=== PATIENT | female | born 1970 | race Hispanic/Latino ===

== ENCOUNTER 2019-12-20 13:51 | Emergency (ER) | payer OTHER ==
[~2019-12-20] VITALS: Ht 157.5 cm; Wt 67.1 kg
--- OUTSIDE RECORDS SUMMARY | 2019-12-20 13:53 | XMS REPORT ---
Author [facility] Address Unknown Phone Unavailable Care Team Providers Care Mortgage Assistant Name Role Phone Unavailable Unavailable Payers Payer Name Policy Type Policy Number Effective Date Expiration Date Problems This patient has no known problems. Allergies, Adverse Reactions, Alerts Allergy Name Allergy Type Status Severity Reaction(s) Onset Date Inactive Date Treating Clinician Comments No Known Allergies DA Active U 2019-01-11 00:00:00 No Known Allergies DA Active U 2016-01-09 00:00:00 Medications This patient has no known medications. Results Test Description Test Time Test Comments Text Results Atomic Results Result Comments - US PELVIS COMPLETE 2019-07-06 16:01:00 [facility] 1970 Age/S: 49 / F [address] [facility] Unit #: [id number] Loc: [place] [address] Phys: Jordy Yadav MD Acct: [id number] Dis Date: Status: REG CLI PHONE #: [phone] Exam Date: 07/06/2019 153 FAX #: [phone] Reason: MENOPAUSAL BLEEDING EXAMS: CPT CODE: [id number] US PELVIS COMPLETE 79493 HISTORY: Menopausal bleeding. COMPARISON: None available. Transabdominal and transvaginal (for better endometrial and ovarian evaluation) pelvic ultrasound with color and Doppler flow and grayscale imaging. Anteverted uterus measured 7.6 x 3.6 x 4 cm. Heterogeneous echogenicity and coarse texture. No discrete fibroids. Endometrial thickness of 8.8 mm is abnormal for postmenopausal woman. The normal should measure less than 5 mm. Visu alized portions of the cervix are normal. Nabothian cysts. Color and Doppler flow in either ovary with normal spectral waveform. Right ovary measured 2.1 x 1 x 2.1 cm with simple cyst measuring 1.1 cm. Left ovary measured 1.5 x 1.2 x 1.2 cm. No free fluid. IMPRESSION: Endometrial thickness of 8.8 mm is abnormal for postmenopausal woman and should measure less than 5 mm. No fibroids. Normal ovaries with color Doppler flow. at 1601 Reported and signed by: Hero Spencer M.D. CC: Mike Agosto; Jordy Yadav Technologist: SHASHANK BARNETT RT(R),[facility] [employer] Date/Time: 07/06/2019 (160) [email or web address].[email or web address] Orig Print D/T: S: 07/06/2019 (5230) Probe: PAGE 1 Signed Report - US TRANSVAGINAL NON OB 2019-07-06 16:01:00 Name: JEFF FARNSWORTH [facility] : 1970 Age/S: 49 / F [address] [facility] Unit #: [id number] Loc: [place] [address] Phys: Jordy Yadav MD Acct: [id number] Dis Date: Status: REG CLI PHONE #: [phone] Exam Date: 07/06/2019 5940 FAX #: [phone] Reason: EXAMS: CPT CODE: [id number] [place] [address] HISTORY: Menopausal bleeding. COMPARISON: None available. Transabdominal and transvaginal (for better endometrial and ovarian evaluation) pelvic ultrasound with color and Doppler flow and grayscale imaging. Anteverted uterus measured 7.6 x 3.6 x 4 cm. Heterogeneous echogenicity and coarse texture. No discrete fibroids. Endometrial thickness of 8.8 mm is abnormal for postmenopausal woman. The normal should measure less than 5 mm. Visu alized portions of the cervix are normal. Nabothian cysts. Color and Doppler flow in either ovary with normal spectral waveform. Right ovary measured 2.1 x 1 x 2.1 cm with simple cyst measuring 1.1 cm. Left ovary measured 1.5 x 1.2 x 1.2 cm. No free fluid. IMPRESSION: Endometrial thickness of 8.8 mm is abnormal for postmenopausal woman and should measure less than 5 mm. No fibroids. Normal ovaries with color Doppler flow. at 1601 Reported and signed by: Hero Spencer M.D. CC: Mike Agosto; Jordy Yadav Technologist: SHASHANK BARNETT RT(R),[facility] [employer] Date/Time: 07/06/2019 (1600) [email or web address].[email or web address] Orig Print D/T: S: 07/06/2019 (1607) Probe: [id number] PAGE 1 Signed Report BASIC METABOLIC PANEL 2019-01-11 05:23:00 SODIUM (test code=NA) 142 mmol/L 136-145 POTASSIUM (test code=K) 3.8 mmol/L 3.5-5.1 CHLORIDE (test code=CL) 106.0 mmol/L 98-107 CARBON DIOXIDE (test code=CO2) 28.0 mmol/L 21-32 ANION GAP (test code=GAP) 11.8 10-20 GLUCOSE (test code=GLU) 90 mg/dL 74-106 BLOOD UREA NITROGEN (test code=BUN) 9 mg/dL 7-18 GLOMERULAR FILTRATION RATE (test code=GFR) 53 mL/min >=60 Estimated GFR by using Modified MDRD formula.Chronic kidney disease is defined as either kidney damageor GFR <60 mL/min/1.73 m2 for >3 months. CREATININE (test code=CREAT) 1.10 mg/dL 0.55-1.02 Note change in reference range due to change in reagent. BUN/CREATININE RATIO (test code=BUN/CREA) 8.2 10-20 CALCIUM (test code=CA) 9.0 mg/dL 8.5-10.1 HEPATIC FUNCTION [id number] 05:23:00* Test Item Value Reference Range Comments TOTAL PROTEIN (test code=PROT) 7.1 gram/dL 6.4-8.2 ALBUMIN (test code=ALB) 3.7 g/dL 3.4-5.0 GLOBULIN (test code=GLOB) 3.4 gram/dL 2.7-4.2 ALBUMIN/GLOBULIN RATIO (test code=A/G) 1.1 0.75-1.50 BILIRUBIN TOTAL (test code=BILT) 0.70 mg/dL 0.0-1.0 BILIRUBIN DIRECT (test code=BILD) 0.22 mg/dL 0.0-0.20 SGOT/AST (test code=AST) 16 IUnit/L 15-37 SGPT/ALT (test code=ALT) 25 IUnit/L 12-78 ALKALINE PHOSPHATASE TOTAL (test code=ALKP) 69 IUnit/L 45-117 Note change in reference range due to change in reagent. HCG SERUM [id number] 05:23:00* Test Item Value Reference Range Comments HCG SERUM QUAL (test code=HCGQL) NEGATIVE NEGATIVE This HCGQL test is NOT applicable for MALE patients.Check with nurse about probable order error.If Tumor Marker Test needed, nurse should order test "HCGTU"(Test #550.48768) [id number] 05:23:00* Test Item Value Reference Range Comments ACETAMINOPHEN (test code=ACET) < 10 mcg/mL 10-30 A RANGE OF 10-30 mcg/mL IS A THERAPEUTIC RANGE. TOXIC CONCENTRATIONS: >150 mcg/mL AT 4 HOURS AFTER INGESTION >=50 mcg/mL AT 12 HOURS AFTER INGESTION [id number] 05:23:00* Test Item Value Reference Range Comments SALICYLATE (test code=SHIV) < 1.7 mg/dL 2.8-20.0 [id number] 05:23:00* Test Item Value Reference Range Comments ALCOHOL (test code=ALC) < 3 mg/dL 0.0-3.0 INTERPRETIVE DATA NOTE: POSITIVE SCREENING RESULTS SHOULD BE CONSIDERED PRESUMPTIVE.WHEN COLLECTED FOR MEDICAL PURPOSES ONLY. SPECIMEN WILL NOTBE COLLECTED BY CHAIN OF CUSTODY.IF A CONFIRMATION OF POSITIVE RESULTS IS DESIRED, ACONFIRMATION TEST MUST BE REQUESTED BY THE PHYSICIAN AT ANADDITIONAL CHARGE TO THE PATIENT. URINALYSIS [id number] 05:23:00* Test Item Value Reference Range Comments UA COLOR (test code=COLU) YELLOW YELLOW UA APPEARANCE (test code=APPU) Cloudy CLEAR UA GLUCOSE DIPSTICK (test code=DGLUU) NEGATIVE mg/dL NEGATIVE UA BILIRUBIN DIPSTICK (test code=BILU) NEGATIVE mg/dL NEGATIVE UA KETONE DIPSTICK (test code=KETU) Negative mg/dL NEGATIVE UA SPECIFIC GRAVITY (test code=SGU) 1.013 1.001-1.035 UA BLOOD DIPSTICK (test code=SUJATHA) Negative NEGATIVE UA PH DIPSTICK (test code=NICCI) 5.0 5.0-8.0 UA PROTEIN DIPSTICK (test code=PROU) Negative mg/dL NEGATIVE UA UROBILINIOGEN DIPSTICK (test code=URO) NEGATIVE mg/dL NEGATIVE UA NITRITE DIPSTICK (test code=MARIE) NEGATIVE NEGATIVE UA LEUKOCYTE ESTERASE W REFLEX (test code=LEUUR) 2+ NEGATIVE UA WBC (test code=WBCU) 6-10 #/HPF 0-5 UA RBC (test code=RBCU) 3-5 #/HPF 0-5 UA EPITHELIAL CELLS (test code=EPIU) Few (2-5/hpf) per HPF FEW UA BACTERIA (test code=BACU) FEW #/HPF NONE UA MUCUS (test code=MUCU) FEW #/LPF FEW Urine Source? Clean CatchDRUGS OF ABUSE SCREEN [id number] 05:23:00* Test Item Value Reference Range Comments URN COCAINE (test code=COCAURN) POSITIVE <300 ng/mL This test provides only a preliminary test result. A morespecific alternate chemical method must be used in order toobtain a confirmed analytical result. Gas chromatography/mass spectrometry (GC/MS) is thepreferred confirmatory method. Other chemical confirmationmethods are available. Clinical consideration and professional judgment should be applied to any drug of abusetest result, particularly when preliminary positive resultsare used.Unconfirmed screening results must not be used fornon-medical purposes (e.g., employment testing, legaltesting). URN CANNABINOIDS (test code=CANNABURN) NEGATIVE <50 ng/mL URN AMPHETAMINE (test code=AMPHETURN) POSITIVE <1000 ng/mL This test provides only a preliminary test result. A morespecific alternate chemical method must be used in order toobtain a confirmed analytical result. Gas chromatography/mass spectrometry (GC/MS) is thepreferred confirmatory method. Other chemical confirmationmethods are available. Clinical consideration and professional judgment should be applied to any drug of abusetest result, particularly when preliminary positive resultsare used.Unconfirmed screening results must not be used fornon-medical purposes (e.g., employment testing, legaltesting). URN BARBITURATE (test code=BARBITURN) NEGATIVE <200 ng/mL URN BENZODIAZEPINE (test code=BENZOURN) NEGATIVE <200 ng/mL URN OPIATES (test code=OPIATURN) NEGATIVE <300 ng/mL URN PHENCYCLIDINE (PCP) (test code=PHENCURN) NEGATIVE <25 ng/mL URN METHADONE (test code=METHAURN) NEGATIVE <300 ng/mL Urine Source? Clean CatchBASIC METABOLIC [id number] 05:09:00* Test Item Value Reference Range Comments SODIUM (test code=NA) 142 mmol/L 136-145 POTASSIUM (test code=K) 3.8 mmol/L 3.5-5.1 CHLORIDE (test code=CL) 106.0 mmol/L 98-107 CARBON DIOXIDE (test code=CO2) mmol/L 21-32 ANION GAP (test code=GAP) 10-20 GLUCOSE (test code=GLU) mg/dL 74-106 BLOOD UREA NITROGEN (test code=BUN) mg/dL 7-18 GLOMERULAR FILTRATION RATE (test code=GFR) mL/min >=60 CREATININE (test code=CREAT) mg/dL 0.55-1.02 BUN/CREATININE RATIO (test code=BUN/CREA) 10-20 CALCIUM (test code=CA) mg/dL 8.5-10.1 HEPATIC FUNCTION [id number] 05:09:00* Test Item Value Reference Range Comments TOTAL PROTEIN (test code=PROT) gram/dL 6.4-8.2 ALBUMIN (test code=ALB) g/dL 3.4-5.0 GLOBULIN (test code=GLOB) gram/dL 2.7-4.2 ALBUMIN/GLOBULIN RATIO (test code=A/G) 0.75-1.50 BILIRUBIN TOTAL (test code=BILT) mg/dL 0.0-1.0 BILIRUBIN DIRECT (test code=BILD) mg/dL 0.0-0.20 SGOT/AST (test code=AST) IUnit/L 15-37 SGPT/ALT (test code=ALT) IUnit/L 12-78 ALKALINE PHOSPHATASE TOTAL (test code=ALKP) IUnit/L 45-117 HCG SERUM [id number] 05:09:00* Test Item Value Reference Range Comments HCG SERUM QUAL (test code=HCGQL) NEGATIVE NEGATIVE This HCGQL test is NOT applicable for MALE patients.Check with nurse about probable order error.If Tumor Marker Test needed, nurse should order test "HCGTU"(Test #550.75710) [id number] 05:09:00* Test Item Value Reference Range Comments ACETAMINOPHEN (test code=ACET) mcg/mL 10-30 [id number] 05:09:00* Test Item Value Reference Range Comments SALICYLATE (test code=SHIV) mg/dL 2.8-20.0 [id number] 05:09:00* Test Item Value Reference Range Comments ALCOHOL (test code=ALC) mg/dL 0-3 BASIC METABOLIC [id number] 05:03:00* Test Item Value Reference Range Comments SODIUM (test code=NA) mmol/L 136-145 POTASSIUM (test code=K) mmol/L 3.5-5.1 CHLORIDE (test code=CL) mmol/L 98-107 CARBON DIOXIDE (test code=CO2) mmol/L 21-32 ANION GAP (test code=GAP) 10-20 GLUCOSE (test code=GLU) mg/dL 74-106 BLOOD UREA NITROGEN (test code=BUN) mg/dL 7-18 GLOMERULAR FILTRATION RATE (test code=GFR) mL/min >=60 CREATININE (test code=CREAT) mg/dL 0.55-1.02 BUN/CREATININE RATIO (test code=BUN/CREA) 10-20 CALCIUM (test code=CA) mg/dL 8.5-10.1 HEPATIC FUNCTION [id number] 05:03:00* Test Item Value Reference Range Comments TOTAL PROTEIN (test code=PROT) gram/dL 6.4-8.2 ALBUMIN (test code=ALB) g/dL 3.4-5.0 GLOBULIN (test code=GLOB) gram/dL 2.7-4.2 ALBUMIN/GLOBULIN RATIO (test code=A/G) 0.75-1.50 BILIRUBIN TOTAL (test code=BILT) mg/dL 0.0-1.0 BILIRUBIN DIRECT (test code=BILD) mg/dL 0.0-0.20 SGOT/AST (test code=AST) IUnit/L 15-37 SGPT/ALT (test code=ALT) IUnit/L 12-78 ALKALINE PHOSPHATASE TOTAL (test code=ALKP) IUnit/L 45-117 HCG SERUM [id number] 05:03:00* Test Item Value Reference Range Comments HCG SERUM QUAL (test code=HCGQL) NEGATIVE NEGATIVE This HCGQL test is NOT applicable for MALE patients.Check with nurse about probable order error.If Tumor Marker Test needed, nurse should order test "HCGTU"(Test #550.48021) [id number] 05:03:00* Test Item Value Reference Range Comments ACETAMINOPHEN (test code=ACET) mcg/mL 10-30 [id number] 05:03:00* Test Item Value Reference Range Comments SALICYLATE (test code=SHIV) mg/dL 2.8-20.0 [id number] 05:03:00* Test Item Value Reference Range Comments ALCOHOL (test code=ALC) mg/dL 0-3 URINALYSIS [id number] 05:01:00* Test Item Value Reference Range Comments UA COLOR (test code=COLU) YELLOW YELLOW UA APPEARANCE (test code=APPU) Cloudy CLEAR UA GLUCOSE DIPSTICK (test code=DGLUU) NEGATIVE mg/dL NEGATIVE UA BILIRUBIN DIPSTICK (test code=BILU) NEGATIVE mg/dL NEGATIVE UA KETONE DIPSTICK (test code=KETU) Negative mg/dL NEGATIVE UA SPECIFIC GRAVITY (test code=SGU) 1.013 1.001-1.035 UA BLOOD DIPSTICK (test code=SUJATHA) Negative NEGATIVE UA PH DIPSTICK (test code=NICCI) 5.0 5.0-8.0 UA PROTEIN DIPSTICK (test code=PROU) Negative mg/dL NEGATIVE UA UROBILINIOGEN DIPSTICK (test code=URO) NEGATIVE mg/dL NEGATIVE UA NITRITE DIPSTICK (test code=MARIE) NEGATIVE NEGATIVE UA LEUKOCYTE ESTERASE W REFLEX (test code=LEUUR) 2+ NEGATIVE UA WBC (test code=WBCU) 6-10 #/HPF 0-5 UA RBC (test code=RBCU) 3-5 #/HPF 0-5 UA EPITHELIAL CELLS (test code=EPIU) Few (2-5/hpf) per HPF FEW UA BACTERIA (test code=BACU) FEW #/HPF NONE UA MUCUS (test code=MUCU) FEW #/LPF FEW Urine Source? Clean CatchDRUGS OF ABUSE SCREEN [id number] 05:01:00* Test Item Value Reference Range Comments URN COCAINE (test code=COCAURN) <300 ng/mL URN CANNABINOIDS (test code=CANNABURN) <50 ng/mL URN AMPHETAMINE (test code=AMPHETURN) <1000 ng/mL URN BARBITURATE (test code=BARBITURN) <200 ng/mL URN BENZODIAZEPINE (test code=BENZOURN) <200 ng/mL URN OPIATES (test code=OPIATURN) <300 ng/mL URN PHENCYCLIDINE (PCP) (test code=PHENCURN) <25 ng/mL URN METHADONE (test code=METHAURN) <300 ng/mL Urine Source? Clean CatchCBC W/O [id number] 04:58:00* Test Item Value Reference Range Comments WHITE BLOOD CELL (test code=WBC) 6.1 K/mm3 4.5-12.5 RED BLOOD CELL (test code=RBC) 4.30 mill/mm3 3.7-5.2 HEMOGLOBIN (test code=HGB) 12.3 gram/dL 11.5-15.5 HEMATOCRIT (test code=HCT) 38.7 % 36.0-46.0 MEAN CELL VOLUME (test code=MCV) 90.0 fL 80-98 MEAN CELL HGB (test code=MCH) 28.6 picogram 27.0-33.0 MEAN CELL HGB CONCETRATION (test code=MCHC) 31.8 gram/dL 33.0-36.0 RED CELL DISTRIBUTION WIDTH (test code=RDW) 12.7 % 11.6-16.2 PLATELET COUNT (test code=PLT) 337 K/mm3 150-450 MEAN PLATELET VOLUME (test code=MPV) 9.2 fL 6.7-11.0 CBC W/O [id number] 04:57:00* Test Item Value Reference Range Comments WHITE BLOOD CELL (test code=WBC) K/mm3 4.5-12.5 RED BLOOD CELL (test code=RBC) mill/mm3 3.7-5.2 HEMOGLOBIN (test code=HGB) 12.3 gram/dL 11.5-15.5 HEMATOCRIT (test code=HCT) 38.7 % 36.0-46.0 MEAN CELL VOLUME (test code=MCV) fL 80-98 MEAN CELL HGB (test code=MCH) picogram 27.0-33.0 MEAN CELL HGB CONCETRATION (test code=MCHC) gram/dL 33.0-36.0 RED CELL DISTRIBUTION WIDTH (test code=RDW) % 11.6-16.2 PLATELET COUNT (test code=PLT) K/mm3 150-450 MEAN PLATELET VOLUME (test code=MPV) fL 6.7-11.0
== END 2019-12-20 14:17 | disposition home or self-care (01) ==
LOC: ER 13:51
DX: M25.511 Pain in right shoulder (principal); X50.0XXA Overexertion from strenuous movement or load, initial encounter; Y92.008 Other place in unspecified non-institutional (private) residence as the place of occurrence of the external cause; F41.9 Anxiety disorder, unspecified
CPT/HCPCS: 99283

== ENCOUNTER 2020-04-03 07:10 | Emergency (ER) | payer OTHER ==
[~2020-04-03] VITALS: Ht 157.5 cm; Wt 67.1 kg
--- OUTSIDE RECORDS SUMMARY | 2020-04-03 07:14 | XMS REPORT | Continuity of Care Document ---
Author Author [facility] t Organization [facility] Address [address] [place] [address] Phone Unavailable Care Team Providers Care Fountain Attendant Name Role Phone NO, PCP PCP Unavailable Masoud Martinez [phone] Payers Payer Name Policy Type Policy Number Effective Date Expiration Date S [facility] [place] [id number] [facility] Problems Condition Name Condition Details Condition Category Status Onset Date Resolution Date Last Treatment Date Treating Clinician Comments Source POSSIBLE ALLERGIC REACTION POS SIBLE ALLERGIC REACTION Active 10/16/2015 [facility] Active 2015-10-16 00:00:00 2015-10-16 07:32:00 [facility] CONFUSED / WEAKNESS CONF USED / WEAKNESS Active 07/13/2014 [facility] Active 2014-07-13 00:00:00 2014-07-13 16:11:00 [facility] Anxiety (finding) Anxi ety (finding) Resolved Problem 10/19/2015 [facility] Resolved 2015-10-19 05:06:43 [facility] Bipolar (qualifier value) Bipo lar (qualifier value) Resolved Problem 10/19/2015 [facility] Resolved 2015-10-19 05:06:43 [facility] Depression - motion (qualifier value) Depression - motion (qualifier value) Resolved Problem 10/19/2015 [facility] Resolved 2015-10-19 05:06:43 [facility] Drug abuse (disorder) Drug abuse (disorder) Resolved Problem 10/19/2015 [facility] Problem Resolved 2015-10-19 05:06: 43 [facility] Psychotic disorder (disorder) Psychotic disorder (disorder) Resolved Problem 10/19/2015 [facility] Problem Resolved 2015-10-19 05:06:43 [facility] Schizophrenia (disorder) Schi zophrenia (disorder) Resolved Problem 10/19/2015 [facility] Problem Resolved 2015-10-19 05: 06:43 [facility] Discharge Diagnosis: Muscle spasm Discharge Diagnosis: Muscle spasm 10/16/2015 10/19/2015 [facility] Problem 2 06:00:00 2015-10-19 05:06:43 2015-10-19 05:06:43 [facility] Discharge Diagnosis: Medication adverse effect Discharge Diagnosis: Medication adverse effect 10/16/2015 10/19/2015 [facility] Problem 2015-10-16 06:00:00 2015-10-19 05:06:43 2015-10-19 05:06:43 [facility] Discharge Diagnosis: Cocaine withdrawal Discharge Diagnosis: Cocaine withdrawal 10/16/2015 10/19/2015 [facility] Problem 2015-10-16 06:00:00 2015-10-19 05:06:43 2015-10-19 05:06:43 [facility] Allergies, Adverse Reactions, Alerts Allergy Name Allergy Type Status Severity Reaction(s) Onset Date Inacti ve Date Treating Clinician Comments Source No Known Allergies DA Active U 2019-01-11 00:00:00 [facility] No Known Allergies DA Active U 2016-01-09 00:00:00 [facility] ibuprofen ibuprofen Active Vignesh [facility] Social History Social Habit Start Date Stop Date Quantity Comments Source Social History 2015-10-16 14:16:59 2015-10-16 14:16:59 [facility] Medications Ordered Medication Name Filled Medication Name Start Date Stop Da te Current Medication? Ordering Clinician Indication Dosage Frequency Signature (SIG) Comments Components Source Cyclobenzaprine hydrochloride 5 MG Oral Tablet [Flexeril] 2015-10-16 17:12:00 Yes 5 mg = 1 tab, PO, TID, X 3 day, # 9 tab, 0 Refill(s) [facility] Sodium Chloride 0.154 MEQ/ML Injectable Solution 2015-10-16 15:5 8:00 No 1,000 mL, 1,000 ml/hr, Infus e Over: 1 hr, Route: IV, ONCE, Priority: STAT, Dosing Weight 54.545 kg, Start date: 10/16/15 9:58:00, Duration: 1 doses or times, Stop date: 10/16/15 9:58:00 Shy Rios 2015-10-16 14:14:00 No 1 mg, Route: IVP, Drug form: INJ, ONCE, Dosing Weight 54.545, kg, Priority: STAT, Start date: 10/16/15 8:14:00, Stop date: 10/16/15 8:14:00 [facility] Flexeril 2015-10-16 14:12:00 No 10 mg, Route: PO, ONCE, Dosing Weight 54.545, kg, Priority: STAT, Start date: 10/16/15 8:12:00, Stop date: 10/16/15 8:12:00 [facility] Vital Signs Vital Name Observation Time Observation Value Comments Source Respitory Rate 2015-10-16 17:40:00 [facility] Temperature Oral (F) 2015-10-16 17:40:00 97.9 F [facility] Systolic (mm Hg) 2015-10-16 17:40:00 [facility] Diastolic (mm Hg) 2015-10-16 17:40:00 [facility] Heart Rate 2015-10-16 17:40:00 [facility] Weight 2015-10-16 13:05:00 [facility] BMI Calculated 2015-10-16 13:05:00 [facility] Height 2015-10-16 13:05:00 157.48 cm [facility] Temperature Oral (F) 2015-10-16 13:05:00 97.8 F [facility] Respitory Rate 2015-10-16 13:05:00 [facility] Heart Rate 2015-10-16 13:05:00 [facility] Systolic (mm Hg) 2015-10-16 13:05:00 [facility] Diastolic (mm Hg) 2015-10-16 13:05:00 [facility] Procedures Procedure Date / Time Performed Performing Clinician Sourc e section [facility] Encounters Start Date/Time End Date/Time Encounter Type Admission Type Attendi [facility] Care Department Encounter ID Source 2019-12-20 13:51:00 2019-12-20 14:17:00 Departed Emergency Room [facility] [id number] [facility] Patients Med [facility] 2015-10-16 13:02:00 2015-10-16 17:49:00 Emergency Center [facility] [id number] [facility] 2015-10-16 07:02:00 2015-10-16 11:49:00 Outpatient F Lucía cardoso [facility] [id number] Results Test Description Test Time Test Comments Results Result Comments Source - US PELVIS COMPLETE 2019-07-06 16:01:00 Name: JEFF FARNSWORTH [facility] : 1970 Age/S: 49 / F [address] [facility]: [id number] Loc: [place] [address] Phys: Jordy Yadav MD Acct: [id number] Dis Date: Status: REG CLI PHONE #: [phone] Exam Date: 07/06/2019 1534 FAX #: [phone] Reason: MENOPAUSAL BLEEDING EXAMS: CPT CODE: [id number] US PELVIS COMPLETE 567[address] HISTORY: Menopausal bleeding. COMPARISON: None available. Transabdominal [...] CC: Mike Agosto; Jordy Yadav Technologist: SHASHANK BARNETT(R)INGA Trnscb Date/Time: 07/06/2019 (160) RupalTH Orig Print D/T: S: 07/06/2019 (1604) Probe: PAGE 1 Signed Report - US TRANSVAGINAL NON OB 2019-07-06 16:01:00 N anahy: JEFF FARNSWORTH [facility] : 1970 Age/S: 49 / F Monique [facility] Unit #: [id number] [place] [address] Phys: Jordy Yadav MD Acct: [id number] Dis Date: Status: REG CLI PHONE #: [phone] Exam Date: 07/06/2019 1534 FAX #: [phone] Reason: EXAMS: CPT CODE: [id number] [place] [address] HISTORY: Menopausal bleeding. COMPARISON: None available. Transabdominal [...] at 1601 Reported and signed by: Hero pSencer M.D. CC: Mike Agosto; Jordy Yadav Technologist: SHASHANK BARNETT(R)INGA Trnscb Date/Time: 07/06/2019 (0951) RupalTH4 Orig Print D/T: S: 07/06/2019 (1604) Probe: [id number] PAGE 1 Signed Report BASIC METABOLIC PANEL 2019-01-11 05:23:00 Test Item SODIUM (test code = NA) 142 mmol/L 136-145 N POTASSIUM (test code = K) 3.8 mmol/L 3.5-5.1 N CHLORIDE (test code = CL) 106.0 mmol/L 98-107 N CARBON DIOXIDE (test code = CO2) 28.0 mmol/L 21-32 N ANION GAP (test code = GAP) 11.8 10-20 N GLUCOSE (test code = GLU) 90 mg/dL 74-106 N BLOOD UREA NITROGEN (test code = BUN) 9 mg/dL 7-18 N GLOMERULAR FILTRATION RATE (test code = GFR) 53 mL/min >=60 Estimated GFR by using Modified MDRD formula.Chronic kidney disease is defined as either kidney damageor GFR <60 mL/min/1.73 m2 for >3 months. CREATININE (test code = CREAT) 1.10 mg/dL 0.55-1.02 H Note change in reference range due to change in reagent. BUN/CREATININE RATIO (test code = BUN/CREA) 8.2 10-20 L CALCIUM (test code = CA) 9.0 mg/dL 8.5-10.1 N HEPATIC FUNCTION [id number] 05:23:00* Test Item Value Reference Range Interpretation Comments TOTAL PROTEIN (test code = PROT) 7.1 gram/dL 6.4-8.2 N ALBUMIN (test code = ALB) 3.7 g/dL 3.4-5.0 N GLOBULIN (test code = GLOB) 3.4 gram/dL 2.7-4.2 N ALBUMIN/GLOBULIN RATIO (test code = A/G) 1.1 0.75-1.50 N BILIRUBIN TOTAL (test code = BILT) 0.70 mg/dL 0.0-1.0 N BILIRUBIN DIRECT (test code = BILD) 0.22 mg/dL 0.0-0.20 H SGOT/AST (test code = AST) 16 IUnit/L 15-37 N SGPT/ALT (test code = ALT) 25 IUnit/L 12-78 N ALKALINE PHOSPHATASE TOTAL (test code = ALKP) 69 IUnit/L 45-117 N Note change in reference range due to change in reagent. HCG SERUM [id number] 05:23:00* Test Item Value Reference Range Interpretation Comments HCG SERUM QUAL (test code = HCGQL) NEGATIVE NEGATIVE This HCGQL test is NOT applicable for MALE patients.Check with nurse about probable order error.If Tumor Marker Test needed, nurse should order test "HCGTU"(Test #550.19116) [id number] 05:23:00* Test Item Value Reference Range Interpretation Comments ACETAMINOPHEN (test code = ACET) < 10 mcg/mL 10-30 L A RANGE OF 10-30 mcg/mL IS A THERAPEUTIC RANGE. TOXIC CONCENTRATIONS: >150 mcg/mL AT 4 HOURS AFTER INGESTION >= 50 mcg/mL AT 12 HOURS AFTER INGESTION [id number] 05:23:00* Test Item Value Reference Range Interpretation Comments SALICYLATE (test code = SHIV) < 1.7 mg/dL 2.8-20.0 L [id number] 05:23:00* Test Item Value Reference Range Interpretation Comments ALCOHOL (test code = ALC) < 3 mg/dL 0.0-3.0 N -- INTERPRETIVE DATA NOTE: POSITIVE SCREENING RESULTS SHOULD BE CONSIDERED PRESUMPTIVE.WHEN COLLECTED FOR MEDICAL PURPOSES ONLY. SPECIMEN WILL NOTBE COLLECTED BY CHAIN OF CUSTODY.IF A CONFIRMATION OF POSITIVE RESULTS IS DESIRED, ACONFIRMATION TEST MUST BE REQUESTED BY THE PHYSICIAN AT ANADDITIONAL CHARGE TO THE PATIENT. URINALYSIS [id number] 05:23:00* Test Item Value Reference Range Interpretation Comments UA COLOR (test code = COLU) YELLOW YELLOW UA APPEARANCE (test code = APPU) Cloudy CLEAR A UA GLUCOSE DIPSTICK (test code = DGLUU) NEGATIVE mg/dL NEGATIVE UA BILIRUBIN DIPSTICK (test code = BILU) NEGATIVE mg/dL NEGATIVE UA KETONE DIPSTICK (test code = KETU) Negative mg/dL NEGATIVE UA SPECIFIC GRAVITY (test code = SGU) 1.013 1.001-1.035 UA BLOOD DIPSTICK (test code = SUJATHA) Negative NEGATIVE UA PH DIPSTICK (test code = NICCI) 5.0 5.0-8.0 UA PROTEIN DIPSTICK (test code = PROU) Negative mg/dL NEGATIVE UA UROBILINIOGEN DIPSTICK (test code = URO) NEGATIVE mg/dL NEGATIVE UA NITRITE DIPSTICK (test code = MARIE) NEGATIVE NEGATIVE UA LEUKOCYTE ESTERASE W REFLEX (test code = LEUUR) 2+ NEG ATIVE A UA WBC (test code = WBCU) 6-10 #/HPF 0-5 A UA RBC (test code = RBCU) 3-5 #/HPF 0-5 UA EPITHELIAL CELLS (test code = EPIU) Few (2-5/hpf) per HPF FEW UA BACTERIA (test code = BACU) FEW #/HPF NONE A UA MUCUS (test code = MUCU) FEW #/LPF FEW Urine Source? Clean CatchDRUGS OF ABUSE SCREEN [id number] 05:23:00* Test Item Value Reference Range Interpretation Comments URN COCAINE (test code = COCAURN) POSITIVE <300 ng/mL A This test provides only a preliminary test [...] (e.g., employment testing, legaltesting). URN CANNABINOIDS (test code = CANNABURN) NEGATIVE <50 ng/mL URN AMPHETAMINE (test code = AMPHETURN) POSITIVE <1000 ng/mL A This test provides only a preliminary test [...] (e.g., employment testing, legaltesting). URN BARBITURATE (test code = BARBITURN) NEGATIVE <200 ng/mL URN BENZODIAZEPINE (test code = BENZOURN) NEGATIVE <200 ng/mL URN OPIATES (test code = OPIATURN) NEGATIVE <300 ng/mL URN PHENCYCLIDINE (PCP) (test code = PHENCURN) NEGATIVE <25 ng/ mL URN METHADONE (test code = METHAURN) NEGATIVE <300 ng/mL Urine Source? Clean CatchBASIC METABOLIC [id number] 05:09:00* Test Item Value Reference Range Interpretation Comments SODIUM (test code = NA) 142 mmol/L 136-145 N POTASSIUM (test code = K) 3.8 mmol/L 3.5-5.1 N CHLORIDE (test code = CL) 106.0 mmol/L 98-107 N CARBON DIOXIDE (test code = CO2) mmol/L 21-32 ANION GAP (test code = GAP) 10-20 GLUCOSE (test code = GLU) mg/dL 74-106 BLOOD UREA NITROGEN (test code = BUN) mg/dL 7-18 GLOMERULAR FILTRATION RATE (test code = GFR) mL/min >=60 CREATININE (test code = CREAT) mg/dL 0.55-1.02 BUN/CREATININE RATIO (test code = BUN/CREA) 10-20 CALCIUM (test code = CA) mg/dL 8.5-10.1 HEPATIC FUNCTION [id number] 05:09:00* Test Item Value Reference Range Interpretation Comments TOTAL PROTEIN (test code = PROT) gram/dL 6.4-8.2 ALBUMIN (test code = ALB) g/dL 3.4-5.0 GLOBULIN (test code = GLOB) gram/dL 2.7-4.2 ALBUMIN/GLOBULIN RATIO (test code = A/G) 0.75-1.50 BILIRUBIN TOTAL (test code = BILT) mg/dL 0.0-1.0 BILIRUBIN DIRECT (test code = BILD) mg/dL 0.0-0.20 SGOT/AST (test code = AST) IUnit/L 15-37 SGPT/ALT (test code = ALT) IUnit/L 12-78 ALKALINE PHOSPHATASE TOTAL (test code = ALKP) IUnit/L 45-117 HCG SERUM [id number] 05:09:00* Test Item Value Reference Range Interpretation Comments HCG SERUM QUAL (test code = HCGQL) NEGATIVE NEGATIVE This HCGQL test is NOT applicable for MALE patients.Check with nurse about probable order error.If Tumor Marker Test needed, nurse should order test "HCGTU"(Test #550.84288) [id number] 05:09:00* Test Item Value Reference Range Interpretation Comments ACETAMINOPHEN (test code = ACET) mcg/mL 10-30 [id number] 05:09:00* Test Item Value Reference Range Interpretation Comments SALICYLATE (test code = SHIV) mg/dL 2.8-20.0 [id number] 05:09:00* Test Item Value Reference Range Interpretation Comments ALCOHOL (test code = ALC) mg/dL 0-3 BASIC METABOLIC [id number] 05:03:00* Test Item Value Reference Range Interpretation Comments SODIUM (test code = NA) mmol/L 136-145 POTASSIUM (test code = K) mmol/L 3.5-5.1 CHLORIDE (test code = CL) mmol/L 98-107 CARBON DIOXIDE (test code = CO2) mmol/L 21-32 ANION GAP (test code = GAP) 10-20 GLUCOSE (test code = GLU) mg/dL 74-106 BLOOD UREA NITROGEN (test code = BUN) mg/dL 7-18 GLOMERULAR FILTRATION RATE (test code = GFR) mL/min >=60 CREATININE (test code = CREAT) mg/dL 0.55-1.02 BUN/CREATININE RATIO (test code = BUN/CREA) 10-20 CALCIUM (test code = CA) mg/dL 8.5-10.1 HEPATIC FUNCTION [id number] 05:03:00* Test Item Value Reference Range Interpretation Comments TOTAL PROTEIN (test code = PROT) gram/dL 6.4-8.2 ALBUMIN (test code = ALB) g/dL 3.4-5.0 GLOBULIN (test code = GLOB) gram/dL 2.7-4.2 ALBUMIN/GLOBULIN RATIO (test code = A/G) 0.75-1.50 BILIRUBIN TOTAL (test code = BILT) mg/dL 0.0-1.0 BILIRUBIN DIRECT (test code = BILD) mg/dL 0.0-0.20 SGOT/AST (test code = AST) IUnit/L 15-37 SGPT/ALT (test code = ALT) IUnit/L 12-78 ALKALINE PHOSPHATASE TOTAL (test code = ALKP) IUnit/L 45-117 HCG SERUM [id number] 05:03:00* Test Item Value Reference Range Interpretation Comments HCG SERUM QUAL (test code = HCGQL) NEGATIVE NEGATIVE This HCGQL test is NOT applicable for MALE patients.Check with nurse about probable order error.If Tumor Marker Test needed, nurse should order test "HCGTU"(Test #550.88203) [id number] 05:03:00* Test Item Value Reference Range Interpretation Comments ACETAMINOPHEN (test code = ACET) mcg/mL 10-30 [id number] 05:03:00* Test Item Value Reference Range Interpretation Comments SALICYLATE (test code = SHIV) mg/dL 2.8-20.0 [id number] 05:03:00* Test Item Value Reference Range Interpretation Comments ALCOHOL (test code = ALC) mg/dL 0-3 URINALYSIS [id number] 05:01:00* Test Item Value Reference Range Interpretation Comments UA COLOR (test code = COLU) YELLOW YELLOW UA APPEARANCE (test code = APPU) Cloudy CLEAR A UA GLUCOSE DIPSTICK (test code = DGLUU) NEGATIVE mg/dL NEGATIVE UA BILIRUBIN DIPSTICK (test code = BILU) NEGATIVE mg/dL NEGATIVE UA KETONE DIPSTICK (test code = KETU) Negative mg/dL NEGATIVE UA SPECIFIC GRAVITY (test code = SGU) 1.013 1.001-1.035 UA BLOOD DIPSTICK (test code = SUJATHA) Negative NEGATIVE UA PH DIPSTICK (test code = NICCI) 5.0 5.0-8.0 UA PROTEIN DIPSTICK (test code = PROU) Negative mg/dL NEGATIVE UA UROBILINIOGEN DIPSTICK (test code = URO) NEGATIVE mg/dL NEGATIVE UA NITRITE DIPSTICK (test code = MARIE) NEGATIVE NEGATIVE UA LEUKOCYTE ESTERASE W REFLEX (test code = LEUUR) 2+ NEG ATIVE A UA WBC (test code = WBCU) 6-10 #/HPF 0-5 A UA RBC (test code = RBCU) 3-5 #/HPF 0-5 UA EPITHELIAL CELLS (test code = EPIU) Few (2-5/hpf) per HPF FEW UA BACTERIA (test code = BACU) FEW #/HPF NONE A UA MUCUS (test code = MUCU) FEW #/LPF FEW Urine Source? Clean CatchDRUGS OF ABUSE SCREEN [id number] 05:01:00* Test Item Value Reference Range Interpretation Comments URN COCAINE (test code = COCAURN) <300 ng/mL URN CANNABINOIDS (test code = CANNABURN) <50 ng/mL URN AMPHETAMINE (test code = AMPHETURN) <1000 ng/mL URN BARBITURATE (test code = BARBITURN) <200 ng/mL URN BENZODIAZEPINE (test code = BENZOURN) <200 ng/mL URN OPIATES (test code = OPIATURN) <300 ng/mL URN PHENCYCLIDINE (PCP) (test code = PHENCURN) <25 ng/ mL URN METHADONE (test code = METHAURN) <300 ng/mL Urine Source? Clean CatchCBC W/O [id number] 04:58:00* Test Item Value Reference Range Interpretation Comments WHITE BLOOD CELL (test code = WBC) 6.1 K/mm3 4.5-12.5 N RED BLOOD CELL (test code = RBC) 4.30 mill/mm3 3.7-5.2 N HEMOGLOBIN (test code = HGB) 12.3 gram/dL 11.5-15.5 N HEMATOCRIT (test code = HCT) 38.7 % 36.0-46.0 N MEAN CELL VOLUME (test code = MCV) 90.0 fL 80-98 N MEAN CELL HGB (test code = MCH) 28.6 picogram 27.0-33.0 N MEAN CELL HGB CONCETRATION (test code = MCHC) 31.8 gram/dL 33.0-36. 0 L RED CELL DISTRIBUTION WIDTH (test code = RDW) 12.7 % 11.6-16. 2 N PLATELET COUNT (test code = PLT) 337 K/mm3 150-450 N MEAN PLATELET VOLUME (test code = MPV) 9.2 fL 6.7-11.0 N CBC W/O [id number] 04:57:00* Test Item Value Reference Range Interpretation Comments WHITE BLOOD CELL (test code = WBC) K/mm3 4.5-12.5 RED BLOOD CELL (test code = RBC) mill/mm3 3.7-5.2 HEMOGLOBIN (test code = HGB) 12.3 gram/dL 11.5-15.5 N HEMATOCRIT (test code = HCT) 38.7 % 36.0-46.0 N MEAN CELL VOLUME (test code = MCV) fL 80-98 MEAN CELL HGB (test code = MCH) picogram 27.0-33.0 MEAN CELL HGB CONCETRATION (test code = MCHC) gram/dL 33.0-36. 0 RED CELL DISTRIBUTION WIDTH (test code = RDW) % 11.6-16. 2 PLATELET COUNT (test code = PLT) K/mm3 150-450 MEAN PLATELET VOLUME (test code = MPV) fL 6.7-11.0 DRUG [id number] 14:32:00Negative *NA*(10/16/15 8:32 AM)[id number] 14:32:00Negative *NA*(10/16/15 8:32 AM)[facility] 2015-10-16 14:32:00Negative *NA*(10/16/15 8:32 AM)[facility] 2015-[facility]-16 14:32:00Negative *NA*(10/16/15 8:32 AM)[facility] 2015-10-16 14:32:00Negative *NA*(10/16/15 8:32 AM)[facility] 2015-[facility]-16 14:32:00Negative *NA*(10/16/15 8:32 AM)[facility] 2015-10-16 14:32:00See Note *NA*(10/16/15 8:32 AM)[facility] 2015-10-16 14:32:00Negative *NA*(10/16/15 8:32 AM)[facility] 2015-10-16 14:32:00<1[facility] [id number] 14:32:00Negative (10/16/15 8:32 AM)[facility] [id number] 14:32:00Negative *NA*(10/16/15 8:32 AM)[facility] [id number] 14:32:001[facility] [id number] 14:32:006.0[facility] 2015-10-16 14:32:00Negative (10/16/15 8:32 AM)[facility] 2015-10-16 14:32:00Negative (10/16/15 8:32 AM)[facility] 2015-10-16 14:32:00Clear (10/16/15 8:32 AM)[facility] [id number] 14:32:001.013[facility] [id number] 14:32:00Negative (10/16/15 8:32 AM) [facility] [id number] 13:46:002.3[facility] [id number] 13:46:003.3[facility] MFPEC6152-05-17 13:46:000.9[facility] PANEL 2015-10-16 13:46:0015 [facility] [id number] 13:46:0011.0 [facility] [id number] 13:46:0062[facility] [id number] 13:46:006.4 [facility] [id number] 13:46:008.0 [facility] [id number] 13:46:0023MH [facility] [id number] 13:46:06029UX [facility] 2015-10-16 13:46:000.3[facility] [id number] 13:46:0047[facility] [id number] 13:46:007[facility] [id number] 13:46:0021 [facility] [id number] 13:46:003.1[facility] [id number] 13:46:004.0 [facility] [id number] 13:46:30497BR [facility] PAN[facility] 2015-10-16 13:46:001.09 [facility] [id number] 13:46:0016 [facility] PPUHH8501-35-10 13:46:46794SW FrndvlkdtMWUZLCSIQK4293-11-97 13:46:0026.2M RrvvcmqmdUXZMHCVMBQ6706-83-73 13:46:0060.8 IippslbrrRWXIAOHKFQ6174-48-10 13:46:007.9 DyflkgvqhQYPWMPYRSG1001-40-45 13:46:004.3[facility] 2015-10-16 13:46:000.8 EncmigmtoCYKYADWIQW0234-16-79 13:46:004.0[facility] DETFQIJGFW0059-60-80 13:46:001.7 IauloogbrHSENKRTPVR6753-40-80 13:46:000.3M AmkqpverpUYLXDTJOMO4267-82-77 13:46:000.5 NrfefqvxnGMFMHZCVQM0919-04-62 13:46:000.1M AodxrttqgBTIIPOTVMY3057-04-03 13:46:007.8 [facility] 2015-10-16 13:46:0013.2M KmcqjxrnhPPJYMZOPIV8672-38-92 13:46:0032.8[facility] HJQHRYQBYY8710-97-94 13:46:20478TJ CnevylcwzGJWGZAIRNB8918-32-47 13:46:0090.0 KvbstznfiHVJRTAYKIJ8719-10-92 13:46:00* Test Item Value Reference Range Interpretation Comments MCH (test code = MCH) 29.5 pg 27.0-31.0 LpksnlpylIHHFTPSNJA2527-80-11 13:46:004.35 HnbubsafiZUUVMEOXHN8319-21-12 13:46:006.6M TggmkwheiMMILPTTAAP5664-52-56 13:46:0039.1[facility] 2015-10-16 13:46:0012.8 ZguyivqvqTDREIVBJYD8870-15-68 13:46:00Negative (10/16/15 7:46 AM)[facility]wzhbjdutIAJYN3256-94-25 13:46:00<0.20 [facility] UCOMPQSRPJ5263-31-98 13:46:00<1.7MH JweyzonmfWJTXTASXWR6131-84-20 13:46:00<2MH CughngmesVOLSEIDMOD2400-66-64 13:46:00<3MH VoiackedeBTCHPMOGYT1504-17-18 13:46:00<0.003[facility]
--- OUTSIDE RECORDS SUMMARY | 2020-04-03 07:14 | XMS REPORT | Summary of Care ---
Author Author [facility] Organization [facility] Address Unknown Phone Unavailable Encounter SEEMA Bowling(SERGEI) [id number] Date(s): 10/16/15 - 10/16/15 [facility] [address] [place] [address]- [phone] Discharge Diagnosis: Muscle spasm Discharge Diagnosis: Medication adverse effect Discharge Diagnosis: Cocaine withdrawal Discharge Disposition: Home Attending Physician: Lucía Martinez MD Vital Signs Most recent to 1 2 oldest [Reference Range]: Height 157.48 cm (10/16/15 7:05 AM) Temperature Oral 97.9 DegF 97.8 DegF [96.4-99.1 DegF] (10/16/15 11:40 AM) (10/16/15 7:05 AM) Blood Pressure 121/61 mmHg 102/61 mmHg [90-140/60-90 mmHg] (10/16/15 11:40 AM) (10/16/15 7:05 AM ) Respiratory Rate 19 BRMIN 18 BRMIN [14-20 BRMIN] (10/16/15 11:40 AM) (10/16/15 7:05 AM) Peripheral Pulse 85 bpm 86 bpm Rate [60-100 bpm] (10/16/15 11:40 AM) (10/16/15 7:05 AM) Weight 54.545 kg (10/16/15 7:05 AM) Body Mass Index 21.99 m2 (10/16/15 7:05 AM) Problem List Condition Effective Dates Status Health Status Informan t Anxiety(Confirmed) Resolved Bipolar(Confirmed) Resolved Depression(Confirmed Resolved ) Drug Resolved abuse(Confirmed) Psychosis(Confirmed) Resolved Schizophrenia(Confir Resolved med) Allergies, Adverse Reactions, Alerts Substance Reaction Severity Status ibuprofen Active Medications Ativan 1 mg, Route: IVP, Drug form: INJ, ONCE, Dosing Weight 54.545, kg, Priority: STAT , Start date: 10/16/15 8:14:00, Stop date: 10/16/15 8:14:00 Start Date: 10/16/15 Stop Date: 10/16/15 Status: Completed Flexeril 10 mg, Route: PO, ONCE, Dosing Weight 54.545, kg, Priority: STAT, Start date: 8:12:00, Stop date: 10/16/15 8:12:00 Start Date: 10/16/15 Stop Date: 10/16/15 Status: Completed Flexeril 5 mg oral tablet 5 mg = 1 tab, PO, TID, X 3 day, # 9 tab, 0 Refill(s) Start Date: 10/16/15 Stop Date: 10/19/15 Status: Ordered Sodium Chloride 0.9% (Bolus) IV 1,000 mL, 1,000 ml/hr, Infuse Over: 1 hr, Route: IV, ONCE, Priority: STAT, Dosin g Weight 54.545 kg, Start date: 10/16/15 9:58:00, Duration: 1 doses or times, St op date: 10/16/15 9:58:00 Start Date: 10/16/15 Stop Date: 10/16/15 Status: Completed Results ELECTROLYTES Most recent to 1 oldest [Reference Range]: Sodium Lvl [135-145 140 mEq/L mEq/L] (10/16/15 7:46 AM) Potassium Lvl 4.0 mEq/L [3.5-5.1 mEq/L] (10/16/15 7:46 AM) Chloride Lvl [95-109 110 mEq/L mEq/L] *HI* (10/16/15 7:46 AM) CO2 [24-32 mEq/L] 23 mEq/L *LOW* (10/16/15 7:46 AM) AGAP [10.0-20.0 11.0 mEq/L mEq/L] (10/16/15 7:46 AM) CHEM PANEL Most recent to 1 oldest [Reference Range]: Creatinine Lvl 1.09 mg/dL [0.50-1.40 mg/dL] (10/16/15 7:46 AM) eGFR 62 mL/min/1.73m2 1 *NA* (10/16/15 7:46 AM) BUN [7-22 mg/dL] 16 mg/dL (10/16/15 7:46 AM) B/C Ratio [6-25] 15 (10/16/15 7:46 AM) Glucose Lvl [70-99 102 mg/dL mg/dL] *HI* (10/16/15 7:46 AM) Total Protein 6.4 g/dL [6.4-8.4 g/dL] (10/16/15 7:46 AM) Albumin Lvl [3.5-5.0 3.1 g/dL g/dL] *LOW* (10/16/15 7:46 AM) Globulin [2.0-4.0 3.3 g/dL g/dL] (10/16/15 7:46 AM) A/G Ratio [0.7-1.6] 0.9 (10/16/15 7:46 AM) Calcium Lvl 8.0 mg/dL [8.5-10.5 mg/dL] *LOW* (10/16/15 7:46 AM) Magnesium Lvl 2.3 mg/dL [1.8-2.4 mg/dL] (10/16/15 7:46 AM) ALT [0-65 unit/L] 21 unit/L (10/16/15 7:46 AM) AST [0-37 unit/L] 7 unit/L (10/16/15 7:46 AM) Alk Phos [39-136 47 unit/L unit/L] (10/16/15 7:46 AM) Bili Total [0.2-1.3 0.3 mg/dL mg/dL] (10/16/15 7:46 AM) 1Result Comment: The eGFR is calculated using the CKD-EPI formula. In most young, healthy individuals the eGFR will be >90 mL/min/1.73m2. The eGFR declines with age. An eGFR of 60-89 may be normal in some populations, particularly the elderly, for whom the CKD-EPI formula has not been extensively validated. Use of the eGFR is not recommended in the following populations: Individuals with unstable creatinine concentrations, including patients and those with serious co-morbid conditions. Patients with extremes in muscle mass or diet. The data above are obtained from the National Kidney Disease Education Program ( NKDEP) which additionally recommends that when the eGFR is used in patients with extremes of body mass index for purposes of drug dosing, the eGFR should be mul tiplied by the estimated BMI. DRUG SCREEN Most recent to 1 oldest [Reference Range]: U Amph Scr Negative [Negative] *NA* (10/16/15 8:32 AM) U Lazara Scr Negative [Negative] *NA* (10/16/15 8:32 AM) U Benzodia Scr Negative [Negative] *NA* (10/16/15 8:32 AM) U Cocaine Scr Negative [Negative] *NA* (10/16/15 8:32 AM) U Opiate Scr Negative [Negative] *NA* (10/16/15 8:32 AM) U Phencyc Scr Negative [Negative] *NA* (10/16/15 8:32 AM) U Cannab Scr Negative [Negative] *NA* (10/16/15 8:32 AM) UDS Note See Note *NA* (10/16/15 8:32 AM) TOXICOLOGY Most recent to 1 oldest [Reference Range]: Acetaminoph Lvl <2 ug/ml [10-20 ug/ml] *LOW* (10/16/15 7:46 AM) Salicylate Lvl <1.7 mg/dL [0.0-30.0 mg/dL] (10/16/15 7:46 AM) Etoh (%) <.003 % *NA* (10/16/15 7:46 AM) Ethanol Lvl <3 mg/dL *NA* (10/16/15 7:46 AM) METAL Most recent to 1 oldest [Reference Range]: [place] Lvl <0.20 mEq/L [0.50-1.50 mEq/L] *LOW* (10/16/15 7:46 AM) URINE CHEM Most recent to 1 oldest [Reference Range]: U Preg [Negative] Negative (10/16/15 8:32 AM) URINE AND STOOL Most recent to 1 oldest [Reference Range]: UA Turbidity [Clear] Clear (10/16/15 8:32 AM) UA Color Ltyellow *NA* (10/16/15 8:32 AM) UA pH [5.0-8.0] 6.0 (10/16/15 8:32 AM) UA Spec Grav 1.013 [<=1.030] (10/16/15 8:32 AM) UA Glucose [Negative Negative mg/dL mg/dL] *NA* (10/16/15 8:32 AM) UA Blood [Negative] Negative (10/16/15 8:32 AM) UA Ketones [Negative Negative mg/dL mg/dL] *NA* (10/16/15 8:32 AM) UA Protein [Negative Negative mg/dL mg/dL] (10/16/15 8:32 AM) UA Urobilinogen <=1.0 mg/dL [0.1-1.0 mg/dL] *NA* (10/16/15 8:32 AM) UA Bili [Negative] Negative *NA* (10/16/15 8:32 AM) UA Leuk Est Negative [Negative] (10/16/15 8:32 AM) UA Nitrite Negative [Negative] (10/16/15 8:32 AM) UA WBC [0-5 /HPF] 1 /HPF (10/16/15 8:32 AM) UA RBC [0-2 /HPF] <1 /HPF (10/16/15 8:32 AM) UA Sq Epi [Few /LPF] Occasional /LPF *NA* (10/16/15 8:32 AM) UA Mucus [None Seen Few /LPF /LPF] *NA* (10/16/15 8:32 AM) IMMUNOLOGY Most recent to 1 oldest [Reference Range]: CDC HIV 4th GEN Negative [Negative] (10/16/15 7:46 AM) HEMATOLOGY Most recent to 1 oldest [Reference Range]: WBC [3.7-10.4 K/CMM] 6.6 K/CMM (10/16/15 7:46 AM) RBC [4.20-5.40 4.35 M/CMM M/CMM] (10/16/15 7:46 AM) Hgb [12.0-16.0 g/dL] 12.8 g/dL (10/16/15 7:46 AM) Hct [36.0-48.0 %] 39.1 % (10/16/15 7:46 AM) MCV [80.0-98.0 fL] 90.0 fL (10/16/15 7:46 AM) MCH [27.0-31.0 pg] 29.5 pg (10/16/15 7:46 AM) MCHC [32.0-36.0 32.8 g/dL g/dL] (10/16/15 7:46 AM) RDW [11.5-14.5 %] 13.2 % (10/16/15 7:46 AM) Platelet [133-450 263 K/CMM K/CMM] (10/16/15 7:46 AM) MPV [7.4-10.4 fL] 7.8 fL (10/16/15 7:46 AM) Segs [45.0-75.0 %] 60.8 % (10/16/15 7:46 AM) Lymphocytes 26.2 % [20.0-40.0 %] (10/16/15 7:46 AM) Monocytes [2.0-12.0 7.9 % %] (10/16/15 7:46 AM) Eosinophils [0.0-4.0 4.3 % %] *HI* (10/16/15 7:46 AM) Basophils [0.0-1.0 0.8 % %] (10/16/15 7:46 AM) Segs-Bands # 4.0 K/CMM [1.5-8.1 K/CMM] (10/16/15 7:46 AM) Lymphocytes # 1.7 K/CMM [1.0-5.5 K/CMM] (10/16/15 7:46 AM) Monocytes # [0.0-0.8 0.5 K/CMM K/CMM] (10/16/15 7:46 AM) Eosinophils # 0.3 K/CMM [0.0-0.5 K/CMM] (10/16/15 7:46 AM) Basophils # [0.0-0.2 0.1 K/CMM K/CMM] (10/16/15 7:46 AM) Immunizations No data available for this section Procedures Procedure Date Related Diagnosis Body Site section Social History Social History Type Response Substance Abuse Use: Current. Type: Cocain e. Alcohol Current, Frequency: 1-2 bigg es per year.1 Smoking Status Never smoker; Exposure to T obacco Smoke None; Cigarette Smoking Last 365 Days No; Reg Smoking Cessation Counseli radha No 1pt states she uses only when she mixes it with drugs Assessment and Plan No data available for this section
--- OUTSIDE RECORDS SUMMARY | 2020-04-03 07:14 | XMS REPORT | Continuity of Care Document ---
Author Author [facility] Address Unknown Phone Unavailable Care Team Providers Care Flying I Instructor Name Role Phone [employer] Information Exchange Unavailable Un available Problems Problem Status Onset Date Classification Date Reported Comments Source Discharge Diagnosis: Muscle spasm 10/16/2015 10/19/2015 [facility] Discharge Diagnosis: Medication adverse effect 10/16/2015 10/19/2015 [facility] Discharge Diagnosis: Cocaine withdrawal 10/16/2015 10/19/2015 [facility] POSSIBLE ALLERGIC REACTION Act rosa 10/16/2015 [facility] CONFUSED / WEAKNESS Active 07/13/2014 [facility] Anxiety (finding) Resolved Problem 10/19/2015 [facility] Bipolar (qualifier value) Reso lved Problem [facility] Depression - motion (qualifier value) Resolved Problem 10/19/2015 [facility] Drug abuse (disorder) Resolved Problem 10/19/2015 [facility] Psychotic disorder (disorder) Resolved Problem [facility] Schizophrenia (disorder) Resol irma Problem [facility] Medications Medication Details Route Status Patient Instructions Ordering Provider Order Date Source Cyclobenzaprine hydrochloride 5 MG Oral Tablet [Flexeril] 5 mg = 1 tab, PO, TID, X 3 day, # 9 tab, 0 Refill(s) Active 10/16/2015 [facility] Sodium Chloride 0.154 MEQ/ML Injectable Solution 1,000 mL, 1,000 ml/hr, Infuse Over: 1 hr, Route: IV, ONCE, Priority: STAT, Dosing Weight 54.545 kg, Start date: 10/16/15 9:58:00, Duration: 1 doses or times, Stop date: 10/16/15 9:58:00 Inactive 10/16/2015 [facility] Ativan 1 mg, Route: IVP, Drug form: INJ, ONCE, Dosing Weight 54.545, kg, Priority: STAT, Start date: 10/16/15 8:14:00, Stop date: 10/16/15 8:14:00 Inactive 10/16/2015 [facility] Flexeril 10 mg, Route: PO, ONC E, Dosing Weight 54.545, kg, Priority: STAT, Start date: 10/16/15 8:12:00, Stop date: 10/16/15 8:12:00 Inactive 10/16/2015 [facility] Allergies, Adverse Reactions, Alerts Substance Category Reaction Severity Reaction type Status Date Reported Comments Source ibuprofen Assertion Drug allergy Active [facility] Immunizations No Data Provided for This Section Results Order Name Results Value Reference Range Date Interpretation Comments Source DRUG SCREEN U Opiate Scr Nega tive *NA* (10/16/15 8:32 AM) Negative 10/16/2015 [facility] DRUG SCREEN U Cannab Scr Nega tive *NA* (10/16/15 8:32 AM) Negative 10/16/2015 [facility] DRUG SCREEN U Phencyc Scr Nega tive *NA* (10/16/15 8:32 AM) Negative 10/16/2015 [facility] DRUG SCREEN U Cocaine Scr Nega tive *NA* (10/16/15 8:32 AM) Negative 10/16/2015 [facility] DRUG SCREEN U Benzodia Scr Nega tive *NA* (10/16/15 8:32 AM) Negative 10/16/2015 [facility] DRUG SCREEN U Lazara Scr Nega tive *NA* (10/16/15 8:32 AM) Negative 10/16/2015 [facility] DRUG SCREEN UDS Note See Note *NA* (10/16/15 8:32 AM) 10/16/2015 [facility] DRUG SCREEN U Amph Scr Nega tive *NA* (10/16/15 8:32 AM) Negative 10/16/2015 [facility] URINE AND STOOL UA Urobilinogen <=1.0 mg/dL 0.1 - 1.0 10/16/2015 [facility] URINE AND STOOL UA Color Ltyellow 10/16/2015 [facility] URINE AND STOOL UA Mucus Few /LPF None Seen /LPF 10/16/2015 [facility] URINE AND STOOL UA RBC <1 0 - 2 10/16/2015 [facility] URINE AND STOOL UA Leuk Est Negative (10/16/15 8:32 AM) Negative 10/16/2015 [facility] URINE AND STOOL UA Bili Negative *NA* (10/16/15 8:32 AM) Negative 10/16/2015 [facility] URINE AND STOOL UA WBC 1 0 - 5 10/16/2015 [facility] URINE AND STOOL UA Sq Epi Occasional /LPF Few /LPF 10/16/2015 [facility] URINE AND STOOL UA Glucose Negative mg/dL Negative mg/dL 10/16/[address] [facility] st URINE AND STOOL UA Protein Negative mg/dL Negative mg/dL 10/16/[address] [facility] st URINE AND STOOL UA Ketones Negative mg/dL Negative mg/dL 10/16/[address] [facility] st URINE AND STOOL UA pH 6.0 5.0 - 8.0 10/16/2015 [facility] URINE AND STOOL UA Blood Negative (10/16/15 8:32 AM) Negative 10/16/2015 [facility] URINE AND STOOL UA Nitrite Negative (10/16/15 8:32 AM) Negative 10/16/2015 [facility] URINE AND STOOL UA Turbidity Clear (10/16/15 8:32 AM) Clear 10/16/2015 [facility] URINE AND STOOL UA Spec Grav 1.013 <=1.030 10/16/2015 [facility] URINE CHEM U Preg Negat rosa (10/16/15 8:32 AM) Negative 10/16/2015 [facility] CHEM PANEL Magnesium Lvl 2.3 1.8 - 2.4 10/16/2015 [facility] CHEM PANEL Globulin 3.3 2.0 - 4.0 10/16/2015 [facility] CHEM PANEL A/G Ratio 0.9 0.7 - 1.6 10/16/2015 [facility] CHEM PANEL B/C Ratio 15 6 - 25 10/16/2015 [facility] CHEM PANEL AGAP 11.0 10.0 - 20.0 10/16/2015 [facility] CHEM PANEL eGFR 62 10/16/2015 Result Comment: The eGFR is calculated using the [...] from the National Kidney Disease Education Program (NKDEP) which additionally recommends that when the eGFR is used in patients with extremes of body mass index for purposes of drug dosing, the eGFR should be multiplied by the estimated BMI. [facility] CHEM PANEL Total Protein 6.4 6.4 - 8.4 10/16/2015 [facility] CHEM PANEL Calcium Lvl 8.0 8.5 - 10.5 10/16/2015 [facility] CHEM PANEL CO2 23 24 - 32 10/16/2015 [facility] CHEM PANEL Chloride Lvl 110 95 - 109 10/16/2015 [facility] CHEM PANEL Bili Total 0.3 0.2 - 1.3 10/16/2015 [facility] CHEM PANEL Alk Phos 47 39 - 136 10/16/2015 [facility] CHEM PANEL AST 7 0 - 37 10/16/2015 [facility] CHEM PANEL ALT 21 0 - 65 10/16/2015 [facility] CHEM PANEL Albumin Lvl 3.1 3.5 - 5.0 10/16/2015 [facility] CHEM PANEL Potassium Lvl 4.0 3.5 - 5.1 10/16/2015 [facility] CHEM PANEL Sodium Lvl 140 135 - 145 10/16/2015 [facility] CHEM PANEL Creatinine Lvl 1.09 0.50 - 1.40 10/16/2015 [facility] CHEM PANEL BUN 16 7 - 22 10/16/2015 [facility] CHEM PANEL Glucose Lvl 102 70 - 99 10/16/2015 [facility] HEMATOLOGY Lymphocytes 26.2 20.0 - 40.0 10/16/2015 [facility] HEMATOLOGY Segs 60.8 45.0 - 75.0 10/16/2015 [facility] HEMATOLOGY Monocytes 7.9 2.0 - 12.0 10/16/2015 [facility] HEMATOLOGY Eosinophils 4.3 0.0 - 4.0 10/16/2015 [facility] HEMATOLOGY Basophils 0.8 0.0 - 1.0 10/16/2015 [facility] HEMATOLOGY Segs-Bands # 4.0 1.5 - 8.1 10/16/2015 [facility] HEMATOLOGY Lymphocytes # 1.7 1.0 - 5.5 10/16/2015 [facility] HEMATOLOGY Eosinophils # 0.3 0.0 - 0.5 10/16/2015 [facility] HEMATOLOGY Monocytes # 0.5 0.0 - 0.8 10/16/2015 [facility] HEMATOLOGY Basophils # 0.1 0.0 - 0.2 10/16/2015 [facility] HEMATOLOGY MPV 7.8 7.4 - 10.4 10/16/2015 [facility] HEMATOLOGY RDW 13.2 11.5 - 14.5 10/16/2015 [facility] HEMATOLOGY MCHC 32.8 32.0 - 36.0 10/16/2015 [facility] HEMATOLOGY Platelet 263 133 - 450 10/16/2015 [facility] HEMATOLOGY MCV 90.0 80.0 - 98.0 10/16/2015 [facility] HEMATOLOGY MCH 29.5 27.0 - 31.0 10/16/2015 [facility] HEMATOLOGY RBC 4.35 4.20 - 5.40 10/16/2015 [facility] HEMATOLOGY WBC 6.6 3.7 - 10.4 10/16/2015 [facility] HEMATOLOGY Hct 39.1 36.0 - 48.0 10/16/2015 [facility] HEMATOLOGY Hgb 12.8 12.0 - 16.0 10/16/2015 [facility] IMMUNOLOGY CDC HIV 4th GEN Negat rosa (10/16/15 7:46 AM) Negative 10/16/2015 [facility] METAL [employer] Lvl <0.20 0.50 - 1.50 10/16/2015 [facility] TOXICOLOGY Salicylate Lvl <1.7 0.0 - 30.0 10/16/2015 [facility] TOXICOLOGY Acetaminoph Lvl <2 10 - 20 10/16/2015 [facility] TOXICOLOGY Ethanol Lvl <3 10/16/2015 [facility] TOXICOLOGY Etoh (%) <0.003 10/16/2015 [facility] Pathology Reports No Data Provided for This Section Diagnostic Reports No Data Provided for This Section Consultation Notes No Data Provided for This Section Discharge Summaries No Data Provided for This Section History and Physicals No Data Provided for This Section Vital Signs Vital Sign Value Date Comments Source Respitory Rate 19 10/16/2015 [facility] Temperature Oral (F) 97.9 F 10/16/2015 [facility] Systolic (mm Hg) 121 10/16/2015 [facility] Diastolic (mm Hg) 61 10/16/2015 [facility] Heart Rate 85 10/16/2015 [facility] Weight 54.545 10/16/2015 [facility] BMI Calculated 21.99 10/16/2015 [facility] Height 157.48 cm 10/16/2015 [facility] Temperature Oral (F) 97.8 F 10/16/2015 [facility] Respitory Rate 18 10/16/2015 [facility] Heart Rate 86 10/16/2015 [facility] Systolic (mm Hg) 102 10/16/2015 [facility] Diastolic (mm Hg) 61 10/16/2015 [facility] Encounters Location Location Details Encounter Type Encounter Number Reason For Visit Attending Provider ADM Date DC Date Status Source [facility] [id number] Lucía Martinez 10/16/2015 10/16/2015 [facility] Procedures Procedure Code Date Perfomer Comments Source section [id number] [facility] Assessment and Plan No Data Provided for This Section Plan of Care No Data Provided for This Section Social History Social History Date Source Social History TypeResponse Substance Abuse Use: Current. Type: Cocaine. Alcohol Current, Frequency: 1-2 times per year.1 Smoking Status Never smoker; Exposure to Tobacco Smoke None; Cigarette Smoking Last 365 Days No; Reg Smoking Cessation Counseling No 1pt states she uses only when she mixes it with drugs 10/16/2015 [facility] Family History No Data Provided for This Section Advance Directives No Data Provided for This Section Functional Status No Data Provided for This Section
[2020-04-03] MEDS ORDERED: FAMOTIDINE 20 MG/2 ML VIAL IV STA (07:27)
[2020-04-03] MEDS ORDERED: METHYLPREDNISOLONE SOD SUCC 125 MG/2ML VIAL IV STA (07:27)
[2020-04-03] MEDS ORDERED: SODIUM CHLORIDE 0.9% 500ML 500 ML IV ONE (07:30)
[2020-04-03] MEDS ORDERED: DIPHENHYDRAMINE HCL INJ 50 MG/ML VIAL IV ONE (07:30)
--- NOTE | 2020-04-03 08:30 | Emergency Department Note ---
History of Present Illnes History of Present Illness Chief Complaint: General Medicine Complaints History of Present Illness This is a 50 year old female PATIENT IN FROM HOME WITH COMPLAINTS OF ITCHY AND SWELLING EYES STARTING LAST NIGHT, STATES SHE WAS AT HER DAUGHTERS HOUSE WHEN IT STARTED. PATIENT STATES THAT SHE TOOK A BENADRYL AND IT GOT BETTER, BUT IT IS STILL THERE THIS MORNING. Historian: Patient Arrival Mode: Car Rn Assessment Required: No Onset (how long ago): day(s) (LAST NIGHT) Location: BILATERAL UPPER EYELIDS Quality: ITCHY Radiation: non-radiation Severity: mild Onset quality: gradual Duration (how long): day(s) (LAST NIGHT) Timing of current episode: constant Chronicity: new Context: recent illness Relieving factors: none Exacerbating factors: none Associated symptoms: denies other symptoms Treatments prior to arrival: none Past Medical/Family History Physician Review I have reviewed the patient's past medical and family history. Any updates have been documented here. Past Medical History Recent Fever: No Clinical Suspicion of Infectio: No New/Unexplained Change in Ment: No Past Medical History: Anxiety, Other Mental Illness Other Medical History: BIPOLAR YUMIKO Past Surgical History: Other Surgery: C-SECTIONS X3 Social History Smoking Cessation: Current some day smoker Counseling Performed: Yes Alcohol Use: None Any Illegal Drug Use: No TB Exposure/Symptoms: No Physically hurt or threatened: No Family History Family history of heart diseas: No Other Last Tetanus: UNKNOWN Any Pre-Existing Lines (PICC,: No Is patient up to date on immun: Yes Last Flu: OOD Last Pneumovax: NA Review of Systems Review of Systems Constitutional: no symptoms EENTM: no symptoms Cardiovascular: no symptoms Respiratory: no symptoms Gastrointestinal: no symptoms Genitourinary: no symptoms Musculoskeletal: no symptoms Neurological: no symptoms Psychological: no symptoms Endocrine: no symptoms Hematological/Lymphatic: no symptoms Review of other systems ONLY ITCHINESS/SWELLING ABOVE BOTH EYES AND ALSO ITCHINESS ON SMALL AREA ON UPPER LIP. All other systems reviewed and negative. Physical Exam Related Data Allergies: Coded Allergies: No Known Allergies (Unverified , 04/03/20) Triage Vital Signs Vital Signs Date Time Temp Pulse Resp B/P (MAP) Pulse Ox O2 Delivery O2 Flow Rate FiO2 04/03/20 07:22 97.7 83 18 129/81 100 Physical Exam CONSTITUTIONAL Constitutional: well-developed, well-nourished HENT HENT: normocephalic, atraumatic, oropharynx clear/moist, nose normal HENT L/R: left ext ear normal, right ext ear normal EYES Eyes: PERRL, conjunctivae normal; left eye discharge, right eye discharge, scleral icterus NECK Neck: ROM normal PULMONARY Pulmonary: effort normal, breath sounds normal CARDIOVASCULAR Cardiovascular: regular rhythm, heart sounds normal, capillary refill normal, normal rate GASTROINTESTINAL Abdominal: soft, nontender, bowel sounds normal GENITOURINARY Genitourinary: exam deferred SKIN Skin: other (VERY MINIMAL ERYTHEMA AND PUFFINESS OF BILATERAL UPPER EYELIDS) MUSCULOSKELETAL Musculoskeletal: ROM normal NEUROLOGICAL Neurological: alert, oriented x 3, no gross motor or sensory deficits PSYCHOLOGICAL Psychological: mood/affect normal, judgement normal Critical Care Time Subsequent provider I assumed direction of critical care for this patient from another provider of my specialty. Assessment & Plan Assessment & Plan Final Impression: (1) ALLERGIC DERMATITIS OF RIGHT UPPER EYELID (2) ALLERGIC DERMATITIS OF LEFT UPPER EYELID Assessment & Plan REPORTED "HIVES" ON BILATERAL EYELIDS - ONLY MINIMAL PUFFINESS NOTED. i DID GIVE ONE DOSE OF SOLUMEDROL AND BENADRYL/PEPCID. DC HOME WITH INSTRUCTIONS TO TAKE BENADRYL 25MG Q6HR X 4 DAYS THEN PRN, PEPCID 20 MG PO BID X 5 DAYS, F/U WITH PCP TOMORROW Last Vital Signs Date Time Temp Pulse Resp B/P (MAP) Pulse Ox O2 Delivery O2 Flow Rate FiO2 04/03/20 07:22 97.7 83 18 129/81 100 Medications in the ED Sodium Chloride 500 ml @ 0 mls/hr Q0M ONCE IV Last administered on 04/03/20at 07:52; Admin Dose 500 MLS/HR; Start 04/03/20 at 07:30; Stop 04/03/20 at 07:31 Methylprednisolone Sodium Succinate 125 mg ONCE STAT IV Last administered on 04/03/20at 07:51; Admin Dose 125 MG; Start 04/03/20 at 07:27; Stop 04/03/20 at 07:28 Diphenhydramine HCl 25 mg NOW ONCE IV Last administered on 04/03/20at 07:52; Admin Dose 25 MG; Start 04/03/20 at 07:30; Stop 04/03/20 at 07:31; Status UNV Famotidine 40 mg NOW STAT IV Last administered on 04/03/20at 07:52; Admin Dose 40 MG; Start 04/03/20 at 07:27; Stop 04/03/20 at 07:28; Status UNV JACK CHAPIN MD Apr 03, 2020 08:30
[2020-04-03 08:53] VITALS: BP 107/66
== END 2020-04-03 08:45 | disposition home or self-care (01) ==
LOC: ER 07:10
DX: H01.114 Allergic dermatitis of left upper eyelid (principal); H01.111 Allergic dermatitis of right upper eyelid; F41.9 Anxiety disorder, unspecified; F31.9 Bipolar disorder, unspecified
CPT/HCPCS: 99283; J1200; J2930; J7040

== ENCOUNTER → 2020-04-16 | Day surgery (SDC) | payer OTHER ==
[~2020-04-16] MED LIST: BUPIVACAINE HCL 0.5% INJ 30 ML VIAL INJ ONE; CEFAZOLIN SOD 1 GM/NS 50ML 50 ML IV ONE; DEXAMETHASONE SOD PHOS INJ 4 MG/ML VIAL ONE; EPINEPHRINE 1 MG/ML 30ML VIAL ONE; EPINEPHRINE HCL 1:1000 1ML 1 MG/ML AMP ONE; ETOMIDATE 2 MG/ML 10 ML INJ IV ONE; FENTANYL CITRATE/PF 100MCG/2 ML INJ ONE; GLYCOPYRROLATE INJ 0.2 MG/ML VIAL ONE; HYDROXYZINE HCL25 MG PO; LIDOCAINE HCL 2% LOCAL INJ 5 ML SDV VIAL INJ ONE; MIDAZOLAM HCL 2 MG/2 ML VIAL ONE; NEOSTIGMINE 1 MG/ML 10ML VIAL ONE; ONDANSETRON HCL INJ 2MG/ML 2ML 2 MG/ML VIAL ONE; SEVOFLURANE INHAL SOLN 250 ML PEN BTL ONE
[2020-04-16 10:12] VITALS: BP 117/74
--- NOTE | 2020-04-16 13:38 | Operative Report ---
DATE OF PROCEDURE: 04/16/2020 SURGEON: Maciej Castro MD CANDY DIPPER: Seb Alvarez, certified PA. PREOPERATIVE DIAGNOSIS: Right shoulder rotator cuff tear. POSTOPERATIVE DIAGNOSES: Right shoulder partial-thickness rotator cuff tear and subacromial bursitis. PROCEDURES: Right shoulder arthroscopy, subacromial decompression and bursectomy, debridement of partial-thickness rotator cuff tear. INDICATIONS: The patient is a 50-year-old lady, who has an approximate 10-month history of right shoulder pain. She was seen and treated by another doctor. She failed conservative management and an MRI appeared to show a small full-thickness rotator cuff tear. She was scheduled for surgery. The doctor then found that he did not take her insurance. She approached to me for further treatment. She would like to proceed with definitive intervention. The risks and benefits of the procedure were explained. The potential lengthy recovery was explained. All of her questions were answered. She states she understands and wishes to proceed. PROCEDURE IN DETAIL: The patient was brought to the operating room and placed under general anesthetic. She received a regional block and prophylactic antibiotics in the holding area. Her right upper extremity was prepped and draped in a sterile manner with the patient positioned in the beach chair position. A preoperative time-out was performed. Posterior arthroscopy portal was established. The shoulder was insufflated with sterile saline and systematically inspected. The glenohumeral articular surfaces appeared well preserved. The biceps tendon was unremarkable. There was some minor fraying of the glenoid labrum. The articular surface of the rotator cuff was inspected throughout. There was no evidence of a tear whatsoever. The scope was placed into the subacromial space. Extensive subacromial bursitis was encountered. A lateral working portal was established. A 4.5 mm electro blade shaver was used to perform an aggressive subacromial bursectomy. She had a type 2 acromion, which was debrided back with a bony decompression. The bursal surface of the rotator cuff was carefully inspected and probed. The anterior supraspinatus had some fraying that did not appear to extend beyond 10% to 20% of the thickness of the footprint of the tendon. This was gently debrided. The remainder of the tendon was probed and noted to have no abnormalities. The arthroscopic instruments were removed. The portal incisions were closed with nylon stitches. She was placed into a sterile bandage and an UltraSling. She was extubated and transported to the recovery room in stable condition. Estimated blood loss was less than 10 mL. All needle and sponge counts were correct. Maciej Castro MD DR/YOLY /[id number]
== END | disposition home or self-care (01) ==
LOC: OR 06:51
PROVIDERS: ATTEND Specialist
DX: S46.021A Laceration of muscle(s) and tendon(s) of the rotator cuff of right shoulder, initial encounter (principal); M75.51 Bursitis of right shoulder; F31.9 Bipolar disorder, unspecified; X58.XXXA Exposure to other specified factors, initial encounter; Z88.8 Allergy status to other drugs, medicaments and biological substances; Z91.041 Radiographic dye allergy status; Z01.812 Encounter for preprocedural laboratory examination; Z11.59 Encounter for screening for other viral diseases
CPT/HCPCS: 29827; 81025; 87635; J0171; J0690; J1100; J2001; J2250; J2405; J2710; J3010

== ENCOUNTER 2021-03-20 14:28 | Emergency (ER) | payer OTHER ==
[~2021-03-20] VITALS: Ht 157.5 cm; Wt 67.1 kg
[~2021-03-20 14:28] MED LIST changes: -BUPIVACAINE HCL 0.5% INJ 30 ML VIAL INJ ONE; -CEFAZOLIN SOD 1 GM/NS 50ML 50 ML IV ONE; -DEXAMETHASONE SOD PHOS INJ 4 MG/ML VIAL ONE; -EPINEPHRINE 1 MG/ML 30ML VIAL ONE; -EPINEPHRINE HCL 1:1000 1ML 1 MG/ML AMP ONE; -ETOMIDATE 2 MG/ML 10 ML INJ IV ONE; -FENTANYL CITRATE/PF 100MCG/2 ML INJ ONE; -GLYCOPYRROLATE INJ 0.2 MG/ML VIAL ONE; -LIDOCAINE HCL 2% LOCAL INJ 5 ML SDV VIAL INJ ONE; -MIDAZOLAM HCL 2 MG/2 ML VIAL ONE; -NEOSTIGMINE 1 MG/ML 10ML VIAL ONE; -ONDANSETRON HCL INJ 2MG/ML 2ML 2 MG/ML VIAL ONE; -SEVOFLURANE INHAL SOLN 250 ML PEN BTL ONE
[2021-03-20] MEDS ORDERED: KETOROLAC TROMETHAMINE 30 MG/ML VIAL IM STA (14:43)
[2021-03-20] MEDS ORDERED: FENTANYL CITRATE/PF 100MCG/2 ML INJ IV ONE (14:45)
[2021-03-20] MEDS ORDERED: HYDROCODON-ACE1 EA12 PO (16:15)
[2021-03-20 17:01] VITALS: BP 122/62
[2021-03-26] MEDS ORDERED: AMBIEN10 MG PO (16:15)
== END 2021-03-20 16:26 | disposition home or self-care (01) ==
LOC: ER 14:45
DX: S52.531A Colles' fracture of right radius, initial encounter for closed fracture (principal); W01.0XXA Fall on same level from slipping, tripping and stumbling without subsequent striking against object, initial encounter; Y93.02 Activity, running; Y92.008 Other place in unspecified non-institutional (private) residence as the place of occurrence of the external cause; F41.9 Anxiety disorder, unspecified; F31.9 Bipolar disorder, unspecified
CPT/HCPCS: 29125; 73080; 73090; 73110; 99283; J1885; J3010

== ENCOUNTER → 2021-03-27 | Day surgery (SDC) | payer OTHER ==
[~2021-03-27] MED LIST changes: +AMBIEN10 MG PO; +BUPIVACAINE 0.5%/EPI 30 ML SDV INJ ONE; +BUPIVACAINE HCL 0.5% INJ 30 ML VIAL INJ ONE; +CEFAZOLIN SOD 1 GM/NS 50ML 50 ML IV ONE; +DEXAMETHASONE SOD PHOS INJ 4 MG/ML VIAL ONE; +FENTANYL CITRATE/PF 100MCG/2 ML INJ ONE; +HYDROCODON-ACE1 EA12 PO; +KETOROLAC TROMETHAMINE 30 MG/ML VIAL ONE; +LIDOCAINE 2%/ EPINEPHRINE 20ML MDV ONE; +LIDOCAINE HCL 2% LOCAL INJ 5 ML SDV VIAL INJ ONE; +MIDAZOLAM HCL 2 MG/2 ML VIAL ONE; +ONDANSETRON HCL INJ 2MG/ML 2ML 2 MG/ML VIAL ONE; +POVIDONE IODINE 0.05% 0.05 % ML PO ONE; +PROPOFOL IV EMULSION 10 MG/ML 20 ML VIAL ONE; +ROPIVACAINE 0.5% 5 MG/ML 30 ML SDV ONE; +SEVOFLURANE INHAL SOLN 250 ML PEN BTL ONE
[2021-03-27 09:23] VITALS: BP 122/71
== END | disposition home or self-care (01) ==
LOC: OR 05:29
PROVIDERS: ATTEND Specialist
DX: S52.571A Other intraarticular fracture of lower end of right radius, initial encounter for closed fracture (principal); F41.9 Anxiety disorder, unspecified; W01.0XXA Fall on same level from slipping, tripping and stumbling without subsequent striking against object, initial encounter; Y93.02 Activity, running; Y92.89 Other specified places as the place of occurrence of the external cause; Y99.8 Other external cause status; Z01.812 Encounter for preprocedural laboratory examination; Z20.822 Contact with and (suspected) exposure to COVID-19; Z68.31 Body mass index [BMI] 31.0-31.9, adult
CPT/HCPCS: 76000; C1713; J0690; J1100; J1885; J2001; J2250; J2405; J2795; J3010; U0002